=== PATIENT | female | born 1990 | race African-American/Black ===

== ENCOUNTER 2021-06-04 12:55 | Outpatient (CLI) | payer OTHER ==
[2021-06-05 00:18] LABS: SARS-CoV-2 PCR by NAA Not Detected (NotDetected)
== END 2021-06-04 12:56 | disposition home or self-care (01) ==
LOC: CSHLAB 12:55
PROVIDERS: ATTEND Obstetrics & Gynecology
DX: Z20.822 Contact with and (suspected) exposure to COVID-19 (principal)
CPT/HCPCS: U0003; U0005

== ENCOUNTER 2021-06-05 07:30 | Inpatient (IN) | payer MEDICAID, OTHER ==
[2021-06-05] MEDS ORDERED: Promethazine HCl 25 MG/ML VIAL IM PRN ×2 (14:20→16:55)
[2021-06-05] MEDS ORDERED: Famotidine/PF 20 mg/2ml Vial SLOW IVP PRN (14:20)
[2021-06-05] MEDS ORDERED: Bicitra 30 ML UDCUP PO PRN (14:20)
[2021-06-05] MEDS ORDERED: Ondansetron PF 4 MG/2 ML Vial IVP PRN ×2 (14:20→16:55)
[2021-06-05] MEDS ORDERED: hydrALAZINE 20 MG/ML VIAL SLOW IVP PRN ×2 (14:20→15:11)
[2021-06-05] MEDS ORDERED: CEFAZOLIN 2 GM in Premix Bag 1 BAG IVPB SCH (14:30)
[2021-06-05 14:40] VITALS: BMI 35.2
[2021-06-05] MEDS ORDERED: PHENYLEPHRINE-NS 100 MCG/ML 10 ML SYRINGE ONE (15:10)
[2021-06-05] MEDS ORDERED: Oxytocin 10 UNITS/ML VIAL ONE (15:10)
[2021-06-05] MEDS ORDERED: Morphine PF 10 MG/10 ML VIAL ONE (15:10)
[2021-06-05] MEDS ORDERED: HYDROcodone/Acetaminophen 5/325 mg Tablet PO PRN ×2 (15:11)
[2021-06-05] MEDS ORDERED: Lanolin Ointment 7 GM TUBE TOP PRN (15:11)
[2021-06-05] MEDS ORDERED: Bisacodyl 10 MG SUPP PR PRN (15:11)
[2021-06-05] MEDS ORDERED: Acetaminophen 325 MG TAB PO PRN (15:11)
[2021-06-05] MEDS ORDERED: Boostrix 0.5 ML (Tdap) VIAL IM ONE (15:11)
[2021-06-05] MEDS ORDERED: Zolpidem Tartrate 5 MG TAB PO PRN (15:11)
[2021-06-05] MEDS ORDERED: diphenhydrAMINE 25 MG CAP PO PRN (15:11)
[2021-06-05] MEDS ORDERED: Phenylephrine 40 MG/NS 250 ML 250 ML ONE (15:11)
[2021-06-05 15:14] LABS: Hemoglobin 9.6 g/dL (12.0-15.5); Mean Corpuscular HGB CONC 32.7 g/dL (32.0-36.0); Mean Corpuscular Hemoglobin 30.2 pg (27.0-33.0); Mean Corpuscular Volume 92.5 fl (81.6-98.3); Mean Platelet Volume 11.5 fl (7.4-10.4); Platelet Count 162 10x3/uL (150-450); RBC Distribution Width 12.9 % (11.5-14.5); Red Blood Cell (RBC) Count 3.18 10x6/uL (3.90-5.03); White Blood Cell (WBC) Count 10.2 10x3/uL (3.5-10.5)
[2021-06-05 15:40] LABS: Hep B Surf Ag Non-Reactive S/CO (NonReactive)
[2021-06-05 15:41] LABS: Syphilis Antibody Nonreactive (Nonreactive); Syphilis Antibody Index 0.02 S/CO (<1.00 Non-Reactive)
[2021-06-05 15:58] LABS: HBSAg Index 0.16 S/CO (0-0.99)
[2021-06-05] MEDS ORDERED: Ketorolac Tromethamine 30 MG/ML VIAL IVP PRN (16:55)
[2021-06-05] MEDS ORDERED: Hydrocerin (Eucerin) Cream 120 gm Jar TOP PRN (16:55)
[2021-06-05] MEDS ORDERED: Naloxone HCl 0.4 mg/ml Vial IV PRN (16:55)
[2021-06-05] MEDS ORDERED: Promethazine HCl 25 MG SUPP PR PRN (16:55)
[2021-06-05] MEDS ORDERED: Naloxone HCl 0.4 mg/ml Vial IVP PRN ×2 (16:55)
[2021-06-05] MEDS ORDERED: diphenhydrAMINE 50 MG/ML VIAL IVP PRN (16:55)
[2021-06-05] MEDS ORDERED: Communication Order-Pharmacy FS SCH (17:00)
[2021-06-05] MEDS ORDERED: NS w/ Oxytocin 30 units 500 ML ONE (18:02)
[2021-06-05] MEDS ORDERED: Ibuprofen 800 MG TAB PO SCH (22:00)
[2021-06-05] MEDS: Lactated Ringer's 1,000 ML IV SCH ×2 (22:27→23:30)
[2021-06-05] MEDS: Docusate Calcium (SURFAK) 240 MG CAP PO SCH (22:28)
[2021-06-06 06:13] LABS: Hemoglobin 8.2 g/dL (12.0-15.5); Mean Corpuscular HGB CONC 32.9 g/dL (32.0-36.0); Mean Corpuscular Hemoglobin 30.1 pg (27.0-33.0); Mean Corpuscular Volume 91.5 fl (81.6-98.3); Mean Platelet Volume 11.7 fl (7.4-10.4); Platelet Count 139 10x3/uL (150-450); RBC Distribution Width 13.1 % (11.5-14.5); Red Blood Cell (RBC) Count 2.72 10x6/uL (3.90-5.03); White Blood Cell (WBC) Count 8.2 10x3/uL (3.5-10.5)
[2021-06-06] MEDS: Lactated Ringer's 1,000 ML IV SCH ×2 (07:22→11:25)
[2021-06-06] MEDS: Docusate Calcium (SURFAK) 240 MG CAP PO SCH ×2 (08:09→21:27)
[2021-06-06] MEDS: HYDROcodone/Acetaminophen 5/325 mg Tablet PO PRN ×3 (11:52→21:26)
[2021-06-06] MEDS: Ibuprofen 800 MG TAB PO SCH ×2 (14:21→21:27)
[2021-06-06] MEDS: Simethicone Chewable 80 MG TAB PO PRN (23:47)
[2021-06-07] MEDS: Ibuprofen 800 MG TAB PO SCH ×3 (06:14→21:08)
[2021-06-07] MEDS: HYDROcodone/Acetaminophen 5/325 mg Tablet PO PRN ×3 (06:16→17:29)
[2021-06-07] MEDS: Simethicone Chewable 80 MG TAB PO PRN ×2 (06:16→21:11)
[2021-06-07] MEDS: Lactated Ringer's 1,000 ML IV SCH ×3 (06:18→14:12)
[2021-06-07] MEDS: Docusate Calcium (SURFAK) 240 MG CAP PO SCH ×2 (08:08→21:08)
[2021-06-08] MEDS: HYDROcodone/Acetaminophen 5/325 mg Tablet PO PRN ×3 (00:37→17:02)
[2021-06-08] MEDS: Lactated Ringer's 1,000 ML IV SCH ×3 (02:56→16:17)
[2021-06-08] MEDS: Ibuprofen 800 MG TAB PO SCH ×2 (05:04→13:55)
[2021-06-08 08:11] VITALS: BP 118/79; TEMP 98.1
[2021-06-08] MEDS: Docusate Calcium (SURFAK) 240 MG CAP PO SCH (08:22)
== END 2021-06-08 18:00 | disposition home or self-care (01) | DRG 787 ==
LOC: CSHLD 13:34 → CSHPP 19:54
PROVIDERS: ADMIT Obstetrics & Gynecology; ATTEND Obstetrics & Gynecology
PROC: 10D00Z1 Extraction of Products of Conception, Low, Open Approach (ICD-10-PCS; principal; 2021-06-05)
PROC: 0UN90ZZ Release Uterus, Open Approach (ICD-10-PCS; 2021-06-05)
DX: O34.211 Maternal care for low transverse scar from previous cesarean delivery (principal); D62 Acute posthemorrhagic anemia; Z3A.39 39 weeks gestation of pregnancy; Z37.0 Single live birth; O99.892 Other specified diseases and conditions complicating childbirth; N73.6 Female pelvic peritoneal adhesions (postinfective); O90.81 Anemia of the puerperium
CPT/HCPCS: 51702; 85027; 86780; 86850; 86900; 86901; 87340; J0690; J1885; J2274; J2590; J7120; U0003; U0005